=== PATIENT | male | born 1995 | race Asian ===

== ENCOUNTER 2016-11-15 20:21 | Emergency (ER) | payer MEDICAID ==
[~2016-11-15] VITALS: Ht 177.8 cm; Wt 52.2 kg
[2016-11-15 20:45] VITALS: BP 108/69
[2016-11-15] MEDS ORDERED: NKM (20:48)
[2016-11-15] MEDS ORDERED: IBUPROFEN600 MG ORAL (21:00)
[2016-11-15 21:15] VITALS: BP 111/68
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
== END 2016-11-15 21:15 | disposition home or self-care (01) ==
LOC: EMR 21:10
DX: S39.012A Strain of muscle, fascia and tendon of lower back, initial encounter (principal); V43.62XA Car passenger injured in collision with other type car in traffic accident, initial encounter; Y93.9 Activity, unspecified; Y92.410 Unspecified street and highway as the place of occurrence of the external cause
CPT/HCPCS: 99283